=== PATIENT | female | born 1985 | race Hispanic/Latino ===

== ENCOUNTER → 2023-11-20 17:39 | Outpatient (REF) | payer OTHER, SELFPAY | LOC: RAD 17:39 | PROVIDERS: ATTENDING PHYSICIAN Obstetrics & Gynecology Gynecology | DX: N83.209 Unspecified ovarian cyst, unspecified side (principal) | CPT/HCPCS: 76830; 76856 ==

== ENCOUNTER → 2024-12-19 14:48 | Outpatient (REF) | payer OTHER, SELFPAY | LOC: HWWDC 14:48 | PROVIDERS: ATTENDING PHYSICIAN Obstetrics & Gynecology Gynecology; FAMILY PHYSICIAN Internal Medicine | DX: Z12.31 Encounter for screening mammogram for malignant neoplasm of breast (principal) | CPT/HCPCS: 77063; 77067 ==